=== PATIENT | female | born 1980 | race Caucasian/White ===

== ENCOUNTER 2017-01-20 06:00 | Inpatient (IN) | payer BC ==
[2017-01-20] MEDS ORDERED: EPSOM SALT 454 GM TP PRN (06:22)
[2017-01-20] MEDS ORDERED: OLIVE OIL 118 ML BTL MISC PRN (06:22)
[2017-01-20] MEDS ORDERED: TERBUTALINE SULFATE 1 MG/ML VIAL IV PRN (06:22)
[2017-01-20] MEDS ORDERED: OXYTOCIN/RINGERS LACTATE 1,000 ML IV PRN (06:22)
[2017-01-20] MEDS ORDERED: LR 1,000 ML IV PRN (06:22)
[2017-01-20] MEDS ORDERED: OXYTOCIN 20 UNIT in LR 1,000 ML IV SCH (06:30)
[2017-01-20] MEDS ORDERED: AMMONIA AROMATIC 1 EACH AMP IH ONE (06:39)
[2017-01-20] MEDS ORDERED: OLIVE OIL 118 ML BTL ONE (06:39)
[2017-01-20] MEDS ORDERED: LIDOCAINE 1% 300 MG/30 ML SDV ONE (06:39)
[2017-01-20] MEDS ORDERED: MISOPROSTOL 200 MCG TAB ONE (06:39)
[2017-01-20] MEDS ORDERED: TERBUTALINE SULFATE 1 MG/ML VIAL ONE (06:39)
[2017-01-20] MEDS ORDERED: OXYTOCIN 10 UNIT/ML VIAL ONE (06:39)
[2017-01-20 06:50] LABS: % IMMATURE GRANULYOCYTES 0.5 % (0.0-1.1); ABSOLUTE IMMATURE GRANULOCYTES 0.04 10^3/uL (0.00-0.10); ADD DIFF? NO; ADD MORPH? NO; ADD SCAN? NO; ATYPICAL LYMPHOCYTE FLAG 0 (0-99); FRAGMENT RBC FLAG 0 (0-99); HEMATOCRIT 29.7 % (38.0-47.0); HEMOGLOBIN 10.2 g/dL (12.6-16.3); LEFT SHIFT FLG 0 (0-99); LIPEMIA HEMOLYSIS FLAG 90 (0-99); MEAN CELL HEMOGLOBIN 29.6 pg (27.9-34.1); MEAN CELL HEMOGLOBIN CONCENTR. 34.3 g/dL (32.4-36.7); MEAN CELL VOLUME 86.1 fL (81.5-99.8); MEAN PLATELET VOLUME 12.5 fL (8.7-11.7); PLATELET CLUMPS FLAG 10 (0-99); PLATELET COUNT 134 10^3/uL (150-400); RED BLOOD CELL COUNT 3.45 10^6/uL (4.18-5.33); RED CELL DISTRIBUTION WIDTH 14.1 % (11.5-15.2)
[2017-01-20] MEDS ORDERED: CALCIUM CARBONATE 500 MG CHEWABLE TAB PO PRN (06:54)
[2017-01-20] MEDS ORDERED: OXYTOCIN/LR *LOW DOSE PROTOCOL IV SCH (07:00)
--- NOTE | 2017-01-20 10:16 | GHP ---
[f rep st] PREOP HISTORY AND PHYSICAL DATE OF ADMISSION: 01/20/2017 ADMISSION DIAGNOSIS: Intrauterine at 39 and 5/7 weeks' gestation for elective induction. HISTORY OF PRESENT ILLNESS: Patient is a 36-year-old 2 para 1-0-0-1, who is 39 and 5/7 weeks' gestation. She has a history of a relatively rapid labor and progressed for elective induction of labor with a favorable cervix. Patient's cervix was 3 cm dilated 75% effaced, and -2 station in the office on Monday, and patient has been admitted and started on Pitocin. Patient's estimated due date is 01/21/2017, dated by a 1st-trimester ultrasound and patient received initial care in [place] and transferred to [facility] at 16 weeks' gestation. MEDICAL HISTORY: History of kidney stones. MEDICATIONS: vitamins and iron. SURGICAL HISTORY: [place] teeth extraction. ALLERGIES: Bactrim, which causes hives. SOCIAL HISTORY: Patient is . She lives with her and their other child. 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 She denies tobacco, alcohol, and drug use. FAMILY MEDICAL HISTORY: Noncontributory. 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 Periods every 28 days, lasting 1-2 days. She is a 2, para 1-0-0-1. In 03/2015, she had a spontaneous vaginal delivery of a 7-pound 12-ounce male infant after 10 hours of labor. She was electively induced for that . Current has been uncomplicated. Patient does have a history of HPV on Pap smear, but was just followed by repeat Paps. She denies any history of any sexually transmitted diseases besides HPV. REVIEW OF SYSTEMS: 10-point review is negative. There is good movement. No loss of fluid. She denies any headaches, changes in vision, nausea, vomiting, fevers, or chills. PHYSICAL EXAMINATION: VITAL SIGNS: Stable. GENERAL APPEARANCE: Alert and oriented x3. PSYCH: Appropriate affect. MUSCULOSKELETAL: Grossly intact. NEURO: Grossly intact. NECK: Mobile and supple. HEART: Rate is regularly regular. LUNGS: Clear to auscultation bilaterally. ABDOMEN: Gravid, nondistended, nontender. EXTREMITIES: No calf tenderness or edema. PELVIC: Was 3 cm dilated, 75% effaced, and -2 station on Monday, so it was deferred today. is in the vertex presentation. heart tracing is category 1, and she is having occasional contractions. LABORATORY DATA: : Blood type B positive. Antibody screen negative. Rubella immune. GBS negative. HBsAg negative. HIV negative. Her 50 g glucose is 76. ASSESSMENT AND PLAN: A 36-year-old, 2, para 1-0-0-1 at 39 and 5/7 weeks ' gestation, here for elective induction of labor. She plans an epidural. She has been started on Pitocin. Her membranes will be artificially ruptured following epidural if patient does not progress in labor. /[id number]/MODL MTDD
[2017-01-20] MEDS ORDERED: fentaNYL 2MCG/ML/BUP 0.1% RTU 100 ML BAG EP ONE (11:40)
[2017-01-20] MEDS ORDERED: BUPIVACAINE 0.25% 30 ML SDV ONE (11:41)
[2017-01-20] MEDS ORDERED: fentaNYL 100 MCG/2 ML INJ ONE (11:41)
[2017-01-20] MEDS ORDERED: PHENYLEPHRINE HCL 100 MCG/ML SYR ONE (11:41)
--- NOTE | 2017-01-20 12:45 | OBPROG ---
Labor Progress Note Assessment/Plan: Assessment: Plan: Subjective/Intrapartum Course: 01/20/17 12:43 patient comfortable with epidural. AROM. moderate amount of clearly fluid noted. status reassuring. Objective: 01/20/17 06:40 Patient ABO/Rh B POSITIVE 01/20/17 06:40 - SVE Dilation (cm): 4 Effacement (%): 75 Station: -2 Membranes: AROM Amniotic Fluid Color: Clear - FHR Assessment Stark FHR Pattern Variability: Moderate FHR Category: 1 - Procedures Non-surgical Procedures: Amniotomy - AP Antepartum Course: 01/20/17 12:44 initiated care in [place]. transfer to [facility] at 16 weeks. uncomplicated . elective induction at 39 5/7 weeks. hx 10 hour labor. Oxytocin Orders Assessment - Pre-Induction/Augmentation Assessment Gestational Age: 39 week(s) and 6 day(s)
--- NOTE | 2017-01-20 13:08 | PREANESOB ---
Obstetric Pre-Anesthesia Info - General Info Proposed Procedure: Labor and delivery with pitocin. : 2 Para: 1 FELIZ: 01/21/17 Gestational Age: 39 week(s) and 6 day(s) - Info Status: Full Term Monitors: External FHR Baseline (bpm): 140 FHR Pattern: Reassuring - Labor Status Cervical Dilation per last OB SVE: 4 Station per last OB SVE: -2 Amniotic Fluid Color: Clear Pitocin: In Use Indications for Labor Analgesia: Induction of Labor, Pain Control Labor Epidural: Proposed Anesthesia ROS: Prior labor epidural. Allergies/Adverse Reactions: Allergy/AdvReac Type Severity Reaction Status Date / Time sulfamethoxazole Allergy Verified 01/20/17 06:22 [From Bactrim] trimethoprim [From Bactrim] Allergy Verified 01/20/17 06:22 Visit Medications: Generic Name Dose Route Start Last Admin Trade Name Freq PRN Reason Stop Dose Admin Calcium Carbonate 500 - 1,000 mg 01/20/17 06:54 Tums PO 07/19/17 06:53 Q4H PRN ACID REFLUX Lactated Ringer's 1,000 mls @ 0 mls/hr 01/20/17 06:22 Lr IV 07/19/17 06:21 PRN PRN SEE PROTOCOL CONDITIONS Protocol Per Protocol Oxytocin 20 unit/ Lactated 1,002 mls @ 150 mls/hr 01/20/17 06:30 Ringer's IV 01/20/17 13:11 CONT YOJANA Oxytocin 30 unit/ Lactated 503 mls @ 0 mls/hr 01/20/17 07:00 01/20/17 08:07 Ringer's IV 07/19/17 06:59 503 mls CONT YOJANA Administration Protocol Per Protocol Ibuprofen 600 mg 01/20/17 06:22 Motrin PO 07/19/17 06:21 Q6HRS PRN post , inflammation Magnesium Sulfate 454 gm 01/20/17 06:22 Epsom Salt TP 07/19/17 06:21 Q1H PRN perineal discomfort [place] Oil 118 ml 01/20/17 06:22 Sweet Oil MISC 07/19/17 06:21 ONCE PRN perineal massage Terbutaline Sulfate 0.25 mg 01/20/17 06:22 Brethine IV 07/19/17 06:21 ONCE PRN Tachysystole Discontinued Medications Generic Name Dose Route Start Last Admin Trade Name Freq PRN Reason Stop Dose Admin Ammonia (Aromatic Spirit) Confirm 01/20/17 06:39 Ammonia Aromatic Administered 01/20/17 06:40 Dose 1 each IH .STK-MED ONE Bupivacaine HCl Confirm 01/20/17 11:41 Sensorcaine 0.25% Sdv Administered 01/20/17 11:42 Dose 30 ml .ROUTE .STK-MED ONE Ephedrine Sulfate Confirm 01/20/17 06:39 Ephedrine Sulfate Administered 01/20/17 06:40 Dose 50 mg .ROUTE .STK-MED ONE Fentanyl Confirm 01/20/17 11:41 Sublimaze Administered 01/20/17 11:42 Dose 100 mcg .ROUTE .STK-MED ONE Fentanyl/Bupivacaine HCl Confirm 01/20/17 11:40 Fentanyl/Bupivacaine/Ns 2 Mcg/Ml 0.1% (Premix Administered 01/20/17 11:41 Dose 100 ml EP .STK-MED ONE Oxytocin/Lactated Ringer's 1,000 mls @ 150 mls/hr 01/20/17 06:22 Pitocin 20 Units/Lr (Premix) IV PRN PRN Post- bleeding Lidocaine HCl Confirm 01/20/17 06:39 Lidocaine Hcl 1% Administered 01/20/17 06:40 Dose 300 mg .ROUTE .STK-MED ONE Misoprostol Confirm 01/20/17 06:39 Cytotec Administered 01/20/17 06:40 Dose 1,000 mcg .ROUTE .STK-MED ONE [place] Oil Confirm 01/20/17 06:39 Sweet Oil Administered 01/20/17 06:40 Dose 118 ml .ROUTE .STK-MED ONE Oxytocin Confirm 01/20/17 06:39 Pitocin Administered 01/20/17 06:40 Dose 40 unit .ROUTE .STK-MED ONE Phenylephrine HCl Confirm 01/20/17 11:41 Neosynephrine Administered 01/20/17 11:42 Dose 1,000 mcg .ROUTE .STK-MED ONE Terbutaline Sulfate Confirm 01/20/17 06:39 Brethine Administered 01/20/17 06:40 Dose 1 mg .ROUTE .STK-MED ONE - Anesthesia History Response to Local Anesthetics: Normal Anesthesia & Operative History: No Prior Problems Family Anesthesia History: Negative - Social History Substance Use/Abuse: Denies - Vital Signs Blood Pressure: 111/69 Heart Rate: 63 Height/Weight (Nursing): Height 172.72 cm Weight 71.668 kg - Focused Exam Neck exam: FROM Mallampati Score: Class 1 Mouth exam: normal dental/mouth exam Pulmonary: no respiratory distress Labs: 01/20/17 06:40 Patient ABO/Rh B POSITIVE 01/20/17 06:40 - Plan Anesthetic Plan: DRAKE Consent Signed and on Chart: Yes Patient/Guardian Understands and Agrees to Plan: Yes Urgent/Emergent Case: Patrice holloway completed preop but documented later for safe timely pt care (ASA 2)
[2017-01-20] MEDS ORDERED: ONDANSETRON 4 MG/2 ML VIAL IVP PRN (13:09)
[2017-01-20] MEDS ORDERED: PHENYLEPHRINE HCL 100 MCG/ML SYR IVP PRN (13:09)
--- NOTE | 2017-01-20 13:09 | POSTANESTH ---
Post Anesthetic Evaluation Cardiovascular Status: Normal, Stable Respiratory Status: Normal, Stable Level of Consciousness/Mental Status: Can Participate in Eval Pain Control: Adequate, Prn Tx Ordered Nausea/Vomiting Control: Adequate, Prn Tx Ordered Complications Possibly Related to Anesthesia: None Noted
[2017-01-20] MEDS ORDERED: fentaNYL 2MCG/ML/BUP 0.1% RTU 100 ML EP SCH (13:30)
[2017-01-20] MEDS ORDERED: LR 500 ML IV SCH (13:30)
--- NOTE | 2017-01-20 14:01 | OBPROG ---
Labor Progress Note Assessment/Plan: Assessment: Plan: Subjective/Intrapartum Course: 01/20/17 12:43 patient comfortable with epidural. AROM. moderate amount of clearly fluid noted. status reassuring. 01/20/17 14:00 patient is still comfortable. pitocin is at 9 mu. minimal change in cervix. IUPC placed. will continue to increase pitocin until contractions are adequate. status reassuring. Objective: 01/20/17 06:40 Patient ABO/Rh B POSITIVE 01/20/17 06:40 Temp Pulse Resp BP Pulse Ox 63 111/69 01/20/17 13:08 01/20/17 13:08 - SVE Dilation (cm): 4 Effacement (%): 75 Station: -1 Membranes: AROM Amniotic Fluid Color: Clear - Contraction Pattern Assessment Current Contraction Pattern: Irregular - Procedures Non-surgical Procedures: Amniotomy, IUPC - AP Antepartum Course: 01/20/17 12:44 initiated care in [place]. transfer to [facility] at 16 weeks. uncomplicated . elective induction at 39 5/7 weeks. hx 10 hour labor. Oxytocin Orders Assessment - Pre-Induction/Augmentation Assessment Gestational Age: 39 week(s) and 6 day(s) ICD10 Worksheet Patient Problems: Problems Problem Status Onset Normal labor Acute
--- NOTE | 2017-01-20 15:28 | OBPROG ---
Labor Progress Note Assessment/Plan: Assessment: Plan: Subjective/Intrapartum Course: 01/20/17 12:43 patient comfortable with epidural. AROM. moderate amount of clearly fluid noted. status reassuring. 01/20/17 14:00 patient is still comfortable. pitocin is at 9 mu. minimal change in cervix. IUPC placed. will continue to increase pitocin until contractions are adequate. status reassuring. 01/20/17 15:26 patient having some left sided pain. has pushed bolus button. anesthesia notified. sve 5/80/-1. positioned into hands and knees while anesthesia arriving. status reassuring. Objective: 01/20/17 06:40 Patient ABO/Rh B POSITIVE 01/20/17 06:40 Temp Pulse Resp BP Pulse Ox 63 111/69 01/20/17 13:08 01/20/17 13:08 - SVE Dilation (cm): 5 Effacement (%): 80 Station: -1 Membranes: AROM Amniotic Fluid Color: Clear - Contraction Pattern Assessment Current Contraction Pattern: Irregular - FHR Assessment Stark FHR Pattern Variability: Moderate FHR Category: 1 - Procedures Non-surgical Procedures: Amniotomy, IUPC - AP Antepartum Course: 01/20/17 12:44 initiated care in [place]. transfer to [facility] at 16 weeks. uncomplicated . elective induction at 39 5/7 weeks. hx 10 hour labor. Oxytocin Orders Assessment - Pre-Induction/Augmentation Assessment Gestational Age: 39 week(s) and 6 day(s) ICD10 Worksheet Patient Problems: Problems Problem Status Onset Normal labor Acute
--- NOTE | 2017-01-20 17:09 | OBDEL ---
Info Type: Vaginal Presentation at Delivery: Vertex L&D Analgesia/Anesthesia Type: Epidural GBS+: No Intrapartum Medications: Generic Name Dose Route Start Last Admin Trade Name Maegan PRN Reason Stop Dose Admin Oxytocin 30 unit/ Lactated 503 mls @ 0 mls/hr 01/20/17 07:00 01/20/17 08:07 Ringer's IV 07/19/17 06:59 503 mls CONT YOJANA Administration Protocol Per Protocol - Care Provider Cabinet Maker/BACKEND PYTHON DEVELOPER: Ashanti Hansen - Hospital Course Intrapartum: 01/20/17 12:43 patient comfortable with epidural. AROM. moderate amount of clearly fluid noted. status reassuring. 01/20/17 14:00 patient is still comfortable. pitocin is at 9 mu. minimal change in cervix. IUPC placed. will continue to increase pitocin until contractions are adequate. status reassuring. 01/20/17 15:26 patient having some left sided pain. has pushed bolus button. anesthesia notified. sve 5/80/-1. positioned into hands and knees while anesthesia arriving. status reassuring. Indications for Delivery: Elective Vaginal Delivery - Delivery Provider Delivery Physician/CNM: Nadine Rogers - Labor and Delivery Onset of Contractions Date: 01/20/17 Onset of Contractions Time: 12:35 Onset of Contractions Type: Induced Rupture of Membranes Date: 01/20/17 Rupture of Membranes Time: 12:36 Rupture of Membranes Type: Artificial Amniotic Fluid Color: Clear Dilation Complete Date: 01/20/17 Dilation Complete Time: 15:30 Placenta Delivery Date: 01/20/17 (marginal cord insertion) Placenta Delivery Time: 16:15 Total Hours of Labor: 3 Non-surgical Procedures: Amniotomy, FSE, IUPC Laceration: 1st Degree Repair: 3-0 Vaginal Sponge Count Correct: Yes Vaginal Needle Count Correct: Yes Vaginal Sweep Performed: Yes EBL: 200 Delivery Events: Nuchal Cord (x2) Delivery Comment: decel to 60's for 2 minutes right before delivery. patient pushed x 49 minutes - Medications Labor Augmentation/Induction Methods Used: Pitocin Labor Augmentation/Induction Indication: Elective [place] Data Stark Delivery Date: 01/20/17 Delivery Time: 16:09 FELIZ: 01/21/17 Gestational Age: 39 week(s) and 6 day(s) Sex of : Male [place] Weight (gm): 3744 g Score (1 Min): 8 Score (5 Min): 9 ICD10 Worksheet Patient Problems: Problems Problem Status Onset Normal labor Acute
[2017-01-20] MEDS ORDERED: DOCUSATE SODIUM 100 MG CAP PO PRN (17:16)
[2017-01-20] MEDS ORDERED: HYDROCODONE/APAP 5/325 TAB PO PRN (17:16)
[2017-01-20] MEDS ORDERED: SIMETHICONE 80 MG TAB CHEW PO PRN (17:16)
[2017-01-20] MEDS ORDERED: ACETAMINOPHEN 325 MG TAB PO PRN (17:16)
[2017-01-20] MEDS ORDERED: HYDROCORTISONE 0.5% CREAM TP PRN (17:16)
--- NOTE | 2017-01-20 18:01 | OBPP ---
Progress Note Assessment/Plan: Assessment: Plan: Objective: 01/20/17 06:40 Patient ABO/Rh B POSITIVE 01/20/17 06:40 Temp Pulse Resp BP Pulse Ox 63 111/69 01/20/17 13:08 01/20/17 13:08
[2017-01-20] MEDS: IBUPROFEN 600 MG TAB PO PRN (18:53)
[2017-01-21] MEDS: IBUPROFEN 600 MG TAB PO PRN ×3 (00:55→15:00)
[2017-01-21 06:16] VITALS: O2SAT 95
--- NOTE | 2017-01-21 08:06 | OBPP ---
Progress Note Assessment/Plan: Assessment: Post day 1 Normal spontaneous vaginal delivery Uncomplicated Plan: Continue routine care Discharge home possible tomorrow 01/21/17 08:00 Subjective/ Course: 01/21/17 08:07 Patient doing well. Tolerating diet ambulating well and flatus. Would like to consider going home in 24 hours Objective: 01/20/17 06:40 Patient ABO/Rh B POSITIVE 01/20/17 06:40 Temp Pulse Resp BP Pulse Ox 36.8 C 78 16 111/60 95 01/20/17 22:00 01/20/17 22:00 01/20/17 22:00 01/20/17 22:00 01/20/17 22:00 Uterine Position/Fundal Height: Umbilicus -2 Uterine Tone: Firm Physical Exam - Physical Exam Respiratory: lungs clear, normal breath sounds Cardiac/Chest: normal peripheral pulses, regular rate, rhythm, edema (1+) Abdomen: normal bowel sounds, flatus Extremities: normal range of motion Skin: normal color, warm/dry Neuro/Psych: alert, normal mood/affect, oriented x 3
[2017-01-21 09:30] VITALS: BP 102/62; PULSE 72; RESP 14; TEMP 98.6
--- NOTE | 2017-01-21 17:10 | OBGCSDC ---
General Delivery Information - General Info : 2 Para: 2 Abortions: 0 Type: Vaginal L&D Analgesia/Anesthesia Type: Epidural Admission Date: 01/20/17 Labs: Patient ABO/Rh B POSITIVE 01/20/17 06:40 Hct 29.7 % (38.0-47.0) L 01/20/17 06:40 - Hospital Course Antepartum: 01/20/17 12:44 initiated care in [place]. transfer to [facility] at 16 weeks. uncomplicated . elective induction at 39 5/7 weeks. hx 10 hour labor. Intrapartum: 01/20/17 12:43 patient comfortable with epidural. AROM. moderate amount of clearly fluid noted. status reassuring. 01/20/17 14:00 patient is still comfortable. pitocin is at 9 mu. minimal change in cervix. IUPC placed. will continue to increase pitocin until contractions are adequate. status reassuring. 01/20/17 15:26 patient having some left sided pain. has pushed bolus button. anesthesia notified. sve 5/80/-1. positioned into hands and knees while anesthesia arriving. status reassuring. : 01/21/17 08:07 Patient doing well. Tolerating diet ambulating well and flatus. Would like to consider going home in 24 hours Vaginal - Delivery Provider Delivery Physician/CNM: Nadine Rogers - Diagnosis Labor: Induced Rupture of Membranes Type: Artificial Amniotic Fluid Color: Clear Laceration: 1st Degree Repair: 3-0 Delivery Events: Nuchal Cord (x2) - Procedures Non-surgical Procedures: Amniotomy, FSE, IUPC - Delivery Non-surgical Procedures: Amniotomy, FSE, IUPC EBL: 200 [place] Data Stark Delivery Date: 01/20/17 Delivery Time: 16:09 FELIZ: 01/21/17 Gestational Age: 40 week(s) and 0 day(s) Sex of : Male [place] Weight (gm): 3744 g Score (1 Min): 8 Score (5 Min): 9 Discharge Information - Discharge Information Condition: Good Instruction/Follow Up: Four Weeks (post wellness check)
== END 2017-01-21 18:19 | disposition home or self-care (01) | DRG 775 ==
LOC: FLD 06:14 → FOB 01-21 01:00
PROVIDERS: ADMIT Obstetrics & Gynecology; ATTEND Obstetrics & Gynecology
PROC: 3E033VJ Introduction of Other Hormone into Peripheral Vein, Percutaneous Approach (ICD-10-PCS; principal; 2017-01-20)
PROC: 0HQ9XZZ Repair Perineum Skin, External Approach (ICD-10-PCS; principal; 2017-01-20)
PROC: 10907ZC Drainage of Amniotic Fluid, Therapeutic from Products of Conception, Via Natural or Artificial Opening (ICD-10-PCS; principal; 2017-01-20)
PROC: 10E0XZZ Delivery of Products of Conception, External Approach (ICD-10-PCS; principal; 2017-01-20)
DX: O69.89X0 Labor and delivery complicated by other cord complications, not applicable or unspecified (principal); O43.193 Other malformation of placenta, third trimester; O70.0 First degree perineal laceration during delivery; Z67.20 Type B blood, Rh positive; Z87.442 Personal history of urinary calculi; Z3A.39 39 weeks gestation of pregnancy; Z37.0 Single live birth
CPT/HCPCS: J2370; J3010; J3105

== ENCOUNTER 2017-04-13 08:05 | Emergency (ER) | payer BC ==
[2017-04-13] MEDS ORDERED: HYDROmorphONE/DILAUDID 1 MG/ML INJ ONE (08:27)
[2017-04-13] MEDS ORDERED: ONDANSETRON 4 MG/2 ML VIAL ONE (08:28)
[2017-04-13] MEDS ORDERED: NS 1,000 ML IV ONE (08:32)
[2017-04-13] MEDS ORDERED: KETOROLAC 30 MG/1 ML SDV IVP ONE (08:32)
[2017-04-13] MEDS ORDERED: ONDANSETRON 4 MG/2 ML VIAL IVP ONE (08:32)
[2017-04-13] MEDS ORDERED: HYDROmorphONE/DILAUDID 1 MG/ML INJ IVP ONE ×3 (08:32→09:58)
[2017-04-13] MEDS ORDERED: KETOROLAC 30 MG/1 ML SDV ONE (08:33)
[2017-04-13 08:39] LABS: PLATELET COUNT 254 10^3/uL (150-400)
[2017-04-13] MEDS ORDERED: IOPAMIDOL (ISOVUE-300) 100 ML BTL ONE (08:39)
--- NOTE | 2017-04-13 08:41 | EDPHY ---
H & P Time Seen by Provider: 04/13/17 08:28 HPI/ROS: HPI Abdominal pain. 36-year-old female by private vehicle with . This patient is a . Vaginal delivery without complication in mid December. She reports that this morning at 6:30 a.m. she developed sudden-onset right lower quadrant abdominal pain with associated nausea. Pain described as sharp and aching. She tried to take some ibuprofen but vomited this up. No vaginal delivery. She still has not had a menstrual. Post . IUD placed recently. No abdominal surgical history. She does have a history of chronic constipation. She does take MiraLax regularly for this. Had a liquidy bowel movement last night at around midnight. ROS: Constitutional: No fever, no chills. No weakness. Eyes: No discharge. No changes in vision. ENT: No sore throat. No nasal congestion or rhinorrhea. Respiratory: No cough. No shortness of breath. Cardiac: No chest pain, no palpitations. Gastrointestinal: As above. Genitourinary: No hematuria. No dysuria or increased frequency with urination. Musculoskeletal: No back pain. No neck pain. No myalgias or arthralgias. Skin: No rashes. Neurological: No headache. No focal weakness or altered sensation. Past medical history: Chronic constipation. Otherwise no past medical history. Social history: Nonsmoker. Here with her . No alcohol. Physical Exam: General Appearance: Alert, she appears uncomfortable. She is writhing. Presentation is consistent with a kidney stone. This patient is responding to questions appropriately and in full sentences. This patient appears well- hydrated and well-nourished. Eyes: Pupils equal and round no pallor or injection. No lid edema, erythema or injection. Respiratory: There are no retractions, lungs are clear to auscultation with good air movement bilaterally. Cardiovascular: Regular rate and rhythm. No murmur. Gastrointestinal: Abdomen is soft with vague right lower quadrant tenderness on palpation, no masses, bowel sounds normal. No focal tenderness at McBurney' s point. No Askew sign. Neurological: Motor sensory function is grossly intact. Cranial nerves are normal. Gait is normal. Skin: Warm and dry, no rashes. Musculoskeletal: Neck is supple and nontender. Extremities are symmetrical. All joints range without pain or impingement. Psychiatric: No agitation. No depression. Database: EKG: Imaging: CT abdomen and pelvis with IV contrast: Significant for a 2 mm distal ureteral stone about 1-2 cm above the bladder. Mild hydronephrosis. No evidence of appendicitis. Results were discussed with staff radiologist. Procedures: Emergency department course: IV placed. She was placed on a monitor. I-STAT creatinine normal. No contraindications to NSAIDs. She was started on IV normal saline with 1 L to be given over the next hour. She was initially given 0.5 mg of IV hydromorphone , 4 mg of IV Zofran and 30 mg of IV Toradol. CT imaging will be obtained to evaluate for possible appendicitis verses ureterolithiasis. 10:15 a.m., patient re-evaluated. Resting comfortably at this time. She was given 0.4 mg of oral Flomax. Results of CT of her abdomen and pelvis discussed. Diagnosis of kidney stone discussed. 10:45 a.m., urinalysis unremarkable. Plan for follow-up with Urology discussed with the patient. Her pain is controlled. I will prescribe her ibuprofen as well as Vicodin for pain control. She will also get a short prescription for Flomax. Return to emergency department precautions reviewed with her and her . All of her questions were answered. She was discharged in good condition with her who is driving. Differential Diagnosis: The differential diagnosis on this patient includes but is not limited to constipation, appendicitis, ureterolithiasis, volvulus. This represents a partial list of diagnoses considered. These considerations are based on history , physical exam, past history, reassessment and diagnostic testing. Smoking Status: Never smoked Constitutional: Initial Vital Signs Temperature (C) 36.4 C 04/13/17 08:06 Heart Rate 75 04/13/17 08:06 Respiratory Rate 20 04/13/17 08:06 Blood Pressure 146/100 H 04/13/17 08:06 O2 Sat (%) 99 04/13/17 08:06 O2 Delivery Mode Room Air Allergies/Adverse Reactions: sulfamethoxazole [From Bactrim] Allergy (Verified 04/13/17 08:06) trimethoprim [From Bactrim] Allergy (Verified 04/13/17 08:06) Home Medications: Medication Instructions Recorded Hydrocodone/APAP 5/325 [Chandler 1 - 2 tab PO Q4-6PRN PRN #14 tab 04/13/17 5/325 (*)] Ondansetron Odt [Zofran Odt 4 mg 4 mg PO Q4PRN PRN #10 tab 04/13/17 (*)] Tamsulosin HCl [Flomax 0.4 MG (*)] 0.4 mg PO DAILY #4 cap 04/13/17 Medical Decision Making - Diagnostics Imaging Results: Imaging Impressions Abdomen CT 04/13/17 08:32 Impression: 1. 3-mm distal right ureteral stone with moderate obstructive arthropathy. 2. Bilateral nephrolithiasis. 3. Mild periportal edema and misting of the mesentery, which could be related to fluid overload. 4. Additional findings as above.. Findings discussed with Dr. Anita Rodriguez on April 13, 2017 at 1005 hours. - Data Points Laboratory Results: Laboratory Results 04/13/17 08:20 04/13/17 08:20 04/13/17 04/13/17 04/13/17 10:10 08:20 08:20 WBC RBC Hgb POC Hgb Hct POC Hct MCV MCH MCHC RDW Plt Count MPV Neut % (Auto) Lymph % (Auto) Hart % (Auto) Eos % (Auto) Baso % (Auto) Nucleat RBC Rel Count Absolute Neuts (auto) Absolute Lymphs (auto) Absolute Monos (auto) Absolute Eos (auto) Absolute Basos (auto) Absolute Nucleated RBC Immature Gran % Immature Gran # POC Sodium Sodium 145 mEq/L mEq/L (135-145) POC Potassium Potassium 4.0 mEq/L mEq/L (3.5-5.2) POC Chloride Chloride 107 mEq/L mEq/L (97-110) Carbon Dioxide 24 mEq/l mEq/l (22-31) Anion Gap 14 mEq/L mEq/L (8-16) POC BUN BUN 16 mg/dL mg/dL (7-23) Creatinine 0.8 mg/dL mg/dL (0.6-1.0) POC Creatinine Estimated GFR > 60 Glucose 107 mg/dL H mg/dL (70-100) POC Glucose Calcium 10.1 mg/dL mg/dL (8.5-10.4) Beta HCG, Qual NEGATIVE Urine Color YELLOW Urine Appearance HAZY Urine pH 7.0 (5.0-7.5) Ur Specific [place] > 1.035 H (1.002-1.030) Urine Protein NEGATIVE (NEGATIVE) Urine Ketones NEGATIVE (NEGATIVE) Urine Blood NEGATIVE (NEGATIVE) Urine Nitrate NEGATIVE (NEGATIVE) Urine Bilirubin NEGATIVE (NEGATIVE) Urine Urobilinogen NEGATIVE EU EU (0.2-1.0) Ur Leukocyte Esterase NEGATIVE (NEGATIVE) Urine RBC NONE SEEN /hpf /hpf (0-3) Urine WBC 1-3 /hpf /hpf (0-3) Ur Epithelial Cells TRACE /lpf /lpf (NONE-1+) Hyaline Casts 1-5 /lpf /lpf (0-1) Urine Mucus TRACE /lpf /lpf (NONE-1+) Urine Glucose NEGATIVE (NEGATIVE) 04/13/17 04/13/17 08:20 08:19 WBC 5.17 10^3/uL 10^3/uL (3.80-9.50) RBC 4.73 10^6/uL 10^6/uL (4.18-5.33) Hgb 13.9 g/dL g/dL (12.6-16.3) POC Hgb 14.6 gm/dL gm/dL (12.6-16.3) Hct 41.2 % % (38.0-47.0) POC Hct 43 % % (38-47) MCV 87.1 fL fL (81.5-99.8) MCH 29.4 pg pg (27.9-34.1) MCHC 33.7 g/dL g/dL (32.4-36.7) RDW 14.5 % % (11.5-15.2) Plt Count 254 10^3/uL 10^3/uL (150-400) MPV 10.2 fL fL (8.7-11.7) Neut % (Auto) 45.4 % % (39.3-74.2) Lymph % (Auto) 44.7 % % (15.0-45.0) Hart % (Auto) 6.2 % % (4.5-13.0) Eos % (Auto) 2.7 % % (0.6-7.6) Baso % (Auto) 0.8 % % (0.3-1.7) Nucleat RBC Rel Count 0.0 % % (0.0-0.2) Absolute Neuts (auto) 2.35 10^3/uL 10^3/uL (1.70-6.50) Absolute Lymphs (auto) 2.31 10^3/uL 10^3/uL (1.00-3.00) Absolute Monos (auto) 0.32 10^3/uL 10^3/uL (0.30-0.80) Absolute Eos (auto) 0.14 10^3/uL 10^3/uL (0.03-0.40) Absolute Basos (auto) 0.04 10^3/uL 10^3/uL (0.02-0.10) Absolute Nucleated RBC 0.00 10^3/uL 10^3/uL (0-0.01) Immature Gran % 0.2 % % (0.0-1.1) Immature Gran # 0.01 10^3/uL 10^3/uL (0.00-0.10) POC Sodium 144 mEq/L mEq/L (135-145) Sodium POC Potassium 3.6 mEq/L mEq/L (3.3-5.0) Potassium POC Chloride 104 mEq/L mEq/L (97-110) Chloride Carbon Dioxide Anion Gap POC BUN 17 mg/dL mg/dL (7-23) BUN Creatinine POC Creatinine 0.8 mg/dL mg/dL (0.6-1.0) Estimated GFR Glucose POC Glucose 109 mg/dL H mg/dL (70-100) Calcium Beta HCG, Qual Urine Color Urine Appearance Urine pH Ur Specific [place] Urine Protein Urine Ketones Urine Blood Urine Nitrate Urine Bilirubin Urine Urobilinogen Ur Leukocyte Esterase Urine RBC Urine WBC Ur Epithelial Cells Hyaline Casts Urine Mucus Urine Glucose Medications Given: Discontinued Medications Hydrocodone Bitart/Acetaminophen (Chandler 5/325) 2 tab PO EDNOW ONE Stop: 04/13/17 10:27 Last Admin: 04/13/17 10:31 Dose: 2 tab Hydromorphone HCl (Dilaudid) 0.5 mg IVP EDNOW ONE Stop: 04/13/17 08:33 Last Admin: 04/13/17 08:39 Dose: 0.5 mg Hydromorphone HCl (Dilaudid) 0.5 mg IVP EDNOW ONE Stop: 04/13/17 08:51 Last Admin: 04/13/17 08:51 Dose: 0.5 mg Hydromorphone HCl (Dilaudid) 0.5 mg IVP EDNOW ONE Stop: 04/13/17 09:59 Last Admin: 04/13/17 09:59 Dose: 0.5 mg Sodium Chloride (Ns) 1,000 mls @ 0 mls/hr IV EDNOW ONE; Wide Open PRN Reason: Protocol Stop: 04/13/17 08:33 Last Admin: 04/13/17 08:39 Dose: 1,000 mls Ketorolac Tromethamine (Toradol) 30 mg IVP EDNOW ONE Stop: 04/13/17 08:33 Last Admin: 04/13/17 08:39 Dose: 30 mg Ondansetron HCl (Zofran) 4 mg IVP EDNOW ONE Stop: 04/13/17 08:33 Last Admin: 04/13/17 08:39 Dose: 4 mg Tamsulosin HCl (Flomax) 0.4 mg PO EDNOW ONE Stop: 04/13/17 10:16 Last Admin: 04/13/17 10:31 Dose: 0.4 mg Point of Care Test Results: 04/13/17 08:19 POC Sodium 144 POC Potassium 3.6 POC Chloride 104 POC BUN 17 POC Creatinine 0.8 POC Glucose 109 H Departure - Departure Disposition: Home, Routine, Self-Care Clinical Impression: Abdominal pain, Kidney stone on right side Condition: Good Instructions: Hydrocodone/Acetaminophen (By mouth), Ondansetron (By mouth), Tamsulosin (By mouth), Kidney Stones (ED) Additional Instructions: Read and follow provided instructions. Follow-up with Urology in 1-2 days for re-evaluation. Take medication as prescribed. Chandler/Percocet dosin-2 every 4-6 hours for [address] not drive on this medication. You can start taking ibuprofen this evening after 6:00 p.m.. You can take 600 mg every 6 hr for the next 2-3 days as needed for pain. Return to the emergency department for worsening pain, fever, vomiting or other serious concerns. Referrals: Ne Benites MD [Medical Doctor] - As per Instructions Stand Alone Forms: Work Excuse Prescriptions: Hydrocodone/APAP 5/325 [Chandler 5/325 (*)] 1 - 2 tab PO Q4-6PRN PRN #14 tab PRN Reason: Pain, Moderate Ondansetron Odt [Zofran Odt 4 mg (*)] 4 mg PO Q4PRN PRN #10 tab PRN Reason: For Nausea & Vomiting Tamsulosin HCl [Flomax 0.4 MG (*)] 0.4 mg PO DAILY #4 cap
[2017-04-13] MEDS ORDERED: TAMSULOSIN HCL 0.4 MG CAP PO ONE (10:15)
[2017-04-13] MEDS ORDERED: HYDROCODONE/APAP 5/325 TAB ONE (10:24)
[2017-04-13] MEDS ORDERED: HYDROCODONE/APAP 5/325 TAB PO ONE (10:26)
[2017-04-13 10:56] VITALS: BP 110/76; PULSE 74; RESP 16; TEMP 98.2; O2SAT 93
== END 2017-04-13 10:53 | disposition home or self-care (01) ==
DX: N20.0 Calculus of kidney (principal); E86.9 Volume depletion, unspecified
CPT/HCPCS: 82947-QW; 96374; J1170; J1885; J2405; Q9967